=== PATIENT | female | born 1950 | race Two or more races ===

== ENCOUNTER 2016-06-20 14:15 | Emergency (ER) | payer SELFPAY ==
[~2016-06-20] VITALS: Ht 165.1 cm; Wt 79.4 kg
[2016-06-20 14:55] LABS: BASOPHILS # (AUTO) 0.1 /CMM (0.0-0.2); BASOPHILS % (AUTO) 0.5 % (0.0-2.0); DIFF TOTAL % 100 %; EOSINOPHILS # (AUTO) 0.1 /CMM (0.0-0.7); EOSINOPHILS % (AUTO) 0.7 % (0.0-6.0); HEMATOCRIT 43 % (33-45); HEMOGLOBIN 14.5 g/dL (11.5-14.8); LYMPHOCYTES % (AUTO) 17.6 % (20.0-44.0); MEAN CORPUSCULAR HEMOGLOBIN 28 PG (26.0-33.0); MEAN CORPUSCULAR HGB CONC 33 g/dl (31.0-36.0); MEAN CORPUSCULAR VOLUME 85 fL (82-100); MONOCYTES # (AUTO) 0.4 /CMM (0.1-1.30); MONOCYTES % (AUTO) 3.4 % (2.0-12.0); NEUTROPHILS # (AUTO) 8.9 /CMM (1.8-8.9); NEUTROPHILS % (AUTO) 77.8 % (43.0-81.0); PLATELET COUNT (AUTO) 329 /CMM (150-450); RED BLOOD CELL COUNT(AUTO) 5.12 MIL/uL (4.0-5.2); WHITE BLOOD COUNT (AUTO) 11.5 K/uL (4.3-11.0)
[2016-06-20 15:23] LABS: ALANINE AMINOTRANSFERASE 21 U/L (12-78); ALBUMIN 4.1 g/dL (3.4-5.0); ANION GAP 14 (5-14); ASPARTATE AMINOTRANSFERASE 24 U/L (15-37); BILIRUBIN,DIRECT 0.1 mg/dL (0.0-0.2); BILIRUBIN,TOTAL 0.6 mg/dL (0.2-1.0); CALCIUM, SERUM 9.2 mg/dL (8.5-10.1); CARBON DIOXIDE 28 mmol/L (21-32); CHLORIDE 102 mmol/L (98-107); CREATININE 0.9 mg/dL (0.6-1.3); GFR 62 mL/min (>60); GLUCOSE 127 mg/dL (74-106); INDIRECT BILIRUBIN 0.5 mg/dL (0.0-1.1); POTASSIUM 3.4 mmol/L (3.5-5.1); SODIUM SERUM 140 mmol/L (136-145); TOTAL PROTEIN, SERUM 8.6 g/dL (6.4-8.2); UREA NITROGEN, BLOOD 12 mg/dL (7-18)
[2016-06-20 15:26] LABS: ACETAMINOPHEN 0 ug/ml (10-30); SALICYLATE 1.8 mg/dL (2.8-20.0)
[2016-06-20 15:33] LABS: INR 1.02 (0.87-1.13); PROTHROMBIN TIME 10.7 SECS (9.5-12.7)
[2016-06-20 15:37] LABS: THYROID STIMULATING HORMONE 2.897 uIU/mL (0.358-3.74)
[2016-06-20 15:53] LABS: KETONES,URINE 15 (NEGATIVE); LEUKOCYTE ESTERASE ,URINE Trace (NEGATIVE)
[2016-06-20 15:57] LABS: ADD UA MICROSCOPIC YES
[2016-06-20] MEDS ORDERED: POTASSIUM CHLORIDE 20 MEQ TAB.PRT.SR PO ONE ×2 (16:00→16:07)
[2016-06-20 16:06] LABS: RBC,URINE 0-2 /HPF (0-2)
[2016-06-20 16:07] LABS: ADD URINE CULTURE YES; WBC,URINE 20-40 /HPF (0-3)
[2016-06-20 16:10] LABS: CANNABINOID, URINE NEGATIVE (NEGATIVE); PHENCYCLIDINE SCREEN,URINE NEGATIVE (NEGATIVE)
[2016-06-20] MEDS ORDERED: SULFAMETH/TRIMETH 800/160 MG 1 UDTAB TABLET PO ONE ×2 (17:58→18:00)
[2016-06-20 20:47] VITALS: BP 149/98
== END 2016-06-20 20:48 | disposition home or self-care (01) ==
LOC: ER 14:19
DX: F03.90 Unspecified dementia, unspecified severity, without behavioral disturbance, psychotic disturbance, mood disturbance, and anxiety (principal); G93.40 Encephalopathy, unspecified; E87.6 Hypokalemia; N39.0 Urinary tract infection, site not specified; R40.4 Transient alteration of awareness; R79.1 Abnormal coagulation profile
CPT/HCPCS: 36415; 70450; 80048; 80076; 80305; 80329; 81001; 82962; 84443; 85025; 85730; 87077; 87086; 87186; 99285; A4606; G0480 ×2; Z7610; 81000-TC; G6039-TC

== ENCOUNTER 2017-02-23 15:42 | Inpatient (IN) | payer MEDICARE, MEDICAID ==
[~2017-02-23] VITALS: Ht 154.9 cm; Wt 76.2 kg
--- NOTE | 2017-02-23 15:45 | NUR ---
MELISSA CARMONA FROM [facility]. PATIENT IS CURRENTLY CALM AND COOPERATIVE. BREATHING EVEN AND UNLABORED. NO SOB. VITALS STABLE. SAFETY AND COMFORT MEASURES IN PLACE. AWAITING MD ORDERS.
--- NOTE | 2017-02-23 15:55 | NUR ---
AUTOMOBILE ACCESSORIES INSTALLER AT [facility] FOR [facility]OD [facility].
[2017-02-23 16:02] LABS: BASOPHILS # (AUTO) 0.1 /CMM (0.0-0.2); BASOPHILS % (AUTO) 0.8 % (0.0-2.0); EOSINOPHILS # (AUTO) 0.5 /CMM (0.0-0.7); EOSINOPHILS % (AUTO) 6.1 % (0.0-6.0); HEMATOCRIT 43 % (33-45); HEMOGLOBIN 14.1 g/dL (11.5-14.8); LYMPHOCYTES # (AUTO) 2.7 /CMM (0.8-4.8); LYMPHOCYTES % (AUTO) 35.5 % (20.0-44.0); MEAN CORPUSCULAR HEMOGLOBIN 28 PG (26.0-33.0); MEAN CORPUSCULAR HGB CONC 33 g/dl (31.0-36.0); MEAN CORPUSCULAR VOLUME 84 fL (82-100); MONOCYTES # (AUTO) 0.4 /CMM (0.1-1.30); MONOCYTES % (AUTO) 5.1 % (2.0-12.0); NEUTROPHILS # (AUTO) 4.1 /CMM (1.8-8.9); NEUTROPHILS % (AUTO) 52.5 % (43.0-81.0); PLATELET COUNT (AUTO) 262 /CMM (150-450); RDW COEFFICIENT OF VARIATION 13.7 (11.5-15.0); RED BLOOD CELL COUNT(AUTO) 5.05 MIL/uL (4.0-5.2); WHITE BLOOD COUNT (AUTO) 7.8 K/uL (4.3-11.0)
[2017-02-23 16:19] LABS: ALCOHOL, BLOOD < 3 mg/dL (0-0); CALCIUM, SERUM 9.2 mg/dL (8.5-10.1); CARBON DIOXIDE 27 mmol/L (21-32); CHLORIDE 105 mmol/L (98-107); CREATININE 0.7 mg/dL (0.6-1.3); GLUCOSE 102 mg/dL (74-106); POTASSIUM 3.5 mmol/L (3.5-5.1); SODIUM SERUM 141 mmol/L (136-145); UREA NITROGEN, BLOOD 14 mg/dL (7-18)
[2017-02-23] MEDS ORDERED: CALC500T63 PO (16:26)
[2017-02-23] MEDS ORDERED: ACET-868 PO (16:26)
[2017-02-23] MEDS ORDERED: BISA10SU8 RC (16:26)
[2017-02-23] MEDS ORDERED: NA P133E RC (16:26)
[2017-02-23] MEDS ORDERED: ARIP400S IM (16:26)
[2017-02-23] MEDS ORDERED: AMLO10TA2 PO (16:26)
[2017-02-23] MEDS ORDERED: DIVA125C PO (16:26)
[2017-02-23] MEDS ORDERED: METF500T7 PO (16:26)
[2017-02-23] MEDS ORDERED: SENN8.6T6 PO (16:26)
[2017-02-23] MEDS ORDERED: LISI2.5T2 PO (16:26)
[2017-02-23] MEDS ORDERED: POLY17PO4 PO (16:26)
--- NOTE | 2017-02-23 16:45 | NUR ---
URINE OBTAINED AND SENT TO LAB.
[2017-02-23 16:59] LABS: APPEARANCE,URINE Clear (CLEAR); BILIRUBIN,URINE Negative (NEGATIVE); BLOOD, URINE Negative Ery/uL (NEGATIVE); COLOR,URINE Yellow (YELLOW); KETONES,URINE Negative (NEGATIVE); LEUKOCYTE ESTERASE ,URINE Moderate (NEGATIVE); NITRITE, URINE Negative (NEGATIVE); PROTEIN,URINE Negative (NEGATIVE); UGLUCOSE Negative (NEGATIVE); UROBILINOGEN,URINE 0.2 EU/dL (0.2)
[2017-02-23 17:14] LABS: BACTERIA,URINE Few /HPF (None Seen); RBC,URINE 0-2 /HPF (0-2); SQUAMOUS EPITHELIAL CELL,UR Few /HPF (None Seen)
--- NOTE | 2017-02-23 19:30 | NUR ---
REPORT RECEIVED FROM NINA PORTILLO FOR YARIEL.
[2017-02-23] MEDS ORDERED: NA PHOS,M-B/NA PHOS,DI-BA 1 EA ENEMA RC PRN (20:00)
[2017-02-23] MEDS ORDERED: ACETAMINOPHEN 325 MG TABLET PO PRN ×2 (20:00→21:00)
[2017-02-23] MEDS ORDERED: CALCIUM CARBONATE 500 MG TAB.CHEW PO PRN (20:00)
[2017-02-23] MEDS ORDERED: DEXTROSE 50%-WATER 50 ML DISP.SYRIN IV PRN (20:00)
[2017-02-23] MEDS ORDERED: BISACODYL SUPP (10 MG) 10 MG/SUPP.RECT SUPP.RECT RC PRN (20:00)
--- NOTE | 2017-02-23 20:07 | NUR ---
PT ADMIT TO BEV 219.
--- NOTE | 2017-02-23 20:12 | NUR ---
REPORT GIVEN TO LUISITO FOR YARIEL ON BEV FLOOR.
--- NOTE | 2017-02-23 20:26 | NUR ---
PT TRANSPORTED TO [place] [id number] VIA WHEELCHAIR WITH EMT. VSS
[2017-02-23 20:30] VITALS: BP 163/95
--- NOTE | 2017-02-23 20:30 | NUR ---
GPS GLOVE PARTS INSPECTOR NOTES ADMITTED THIS 66 YEAR OLD FEMALE ON 5150 HOLD FOR DANGER TO OTHERS AND GRAVE DISABILITY. PER HOLD PATIENT WAS AGGRESSIVE WITH STAFF AFTER THEY TRIED TO STOP HER FROM LEAVING THE FACILITY. PATIENT TRIED TO LEAVE FACILITY THROUGH THE WINDOW. UPON FACE TO FACE PATIENT WAS IRRITABLE AND UNCOOPERATIVE. REFUSED MEDICATION. PATIENT IS UZBEK SPEAKING. VITAL SIGNS CHECKED AND RECORDED. AFEBRILE. ASSESSMENT OF BODY SYSTEMS COMPLETED. SKIN CHECK DONE. SKIN IS CLEAR. PATIENTS BELONGINGS CHECKED FOR CONTRABAND ITEMS. NO CONTRABAND FOUND WITH PATIENT. PATIENT ADMITTED UNDER THE CARE OF DR. BOWLING FOR PSYCH AND DR. BERNARD FOR MEDICAL. BOTH NOTIFIED OF THIS ADMISSION. MED. RECON DONE. WILL NOTIFY NEXT OF KIN IN AM. PATIENT MADE COMFORTABLE IN BED. WILL MONITOR PATIENT FOR SAFETY AND BEHAVIORS.
[2017-02-23] MEDS ORDERED: MAGNESIUM HYDROXIDE 30 ML UDC PO PRN (21:00)
[2017-02-23] MEDS ORDERED: MAG HYDROX/AL HYDROX/SIMETH 30 ML UDC PO PRN (21:00)
[2017-02-23] MEDS ORDERED: TEMAZEPAM 7.5 MG CAPSULE PO PRN (21:00)
[2017-02-23] MEDS ORDERED: LORAZEPAM 0.5 MG TABLET PO PRN (21:00)
[2017-02-23] MEDS: BLOOD SUGAR DIAGNOSTIC 1 EACH STRIP IN SCH (22:59)
[2017-02-23] MEDS: LISINOPRIL (5MG) 5 MG TABLET PO SCH ×2 (23:21→23:59)
[2017-02-23] MEDS: SENNOSIDES 8.6 MG TABLET PO SCH ×2 (23:21→23:59)
[2017-02-23] MEDS ORDERED: INSULIN REGULAR, HUMAN 100 UNIT/ML 3 ML VIAL ONE (23:35)
[2017-02-23 23:54] VITALS: BP 148/88
[2017-02-23] MEDS: INSULIN REGULAR, HUMAN 100 UNIT/ML 3 ML VIAL SQ PRN (23:55)
--- NOTE | 2017-02-24 07:23 | NUR ---
GPS RN NOTES CALL PLACED TO JARRED (), NUMBER WAS NOT WORKING. CALL MADE TO DAUGHTER KARYNA NOTIFIED HER OF MOTHERS ADMISSION.
[2017-02-24 07:47] VITALS: BP 144/75
[2017-02-24] MEDS: BLOOD SUGAR DIAGNOSTIC 1 EACH STRIP IN SCH ×4 (07:50→21:21)
[2017-02-24] MEDS: AMLODIPINE BESYLATE 10 MG TABLET PO SCH (09:00)
[2017-02-24] MEDS: LISINOPRIL (5MG) 5 MG TABLET PO SCH (09:00)
[2017-02-24] MEDS: POLYETHYLENE GLYCOL 3350 17 GM POWD.PACK PO SCH (09:00)
[2017-02-24] MEDS: METFORMIN XR 500 MG TAB.SR.24H PO SCH (09:00)
--- NOTE | 2017-02-24 09:06 | NUR ---
GPS/RN pt refused am meds stated " medication makes me sick". communicated with help of hungarian speaking Chin FUNEZ. pt understands basic Telugu.
--- NOTE | 2017-02-24 11:39 | NUR ---
GPS/RN PT IS DNR/DNI PER ORIGINAL POLST IN THE CHART
[2017-02-24] MEDS: DIVALPROEX SODIUM 125 MG CAP.SPRINK PO SCH ×2 (12:15→21:00)
--- NOTE | 2017-02-24 12:18 | NUR ---
GPS/RN PT TOOK THE DEPAKOTE PO BUT REFUSED ACCUCHECK. OFFERED X3
[2017-02-24 12:28] LABS: BASOPHILS % (AUTO) 0.5 % (0.0-2.0); EOSINOPHILS # (AUTO) 0.5 /CMM (0.0-0.7); EOSINOPHILS % (AUTO) 6.3 % (0.0-6.0); HEMATOCRIT 41 % (33-45); HEMOGLOBIN 13.9 g/dL (11.5-14.8); LYMPHOCYTES # (AUTO) 2.9 /CMM (0.8-4.8); LYMPHOCYTES % (AUTO) 36.6 % (20.0-44.0); MEAN CORPUSCULAR HEMOGLOBIN 28 PG (26.0-33.0); MEAN CORPUSCULAR HGB CONC 34 g/dl (31.0-36.0); MEAN CORPUSCULAR VOLUME 83 fL (82-100); MONOCYTES # (AUTO) 0.4 /CMM (0.1-1.30); MONOCYTES % (AUTO) 5.4 % (2.0-12.0); NEUTROPHILS # (AUTO) 4.1 /CMM (1.8-8.9); NEUTROPHILS % (AUTO) 51.2 % (43.0-81.0); PLATELET COUNT (AUTO) 274 /CMM (150-450); RDW COEFFICIENT OF VARIATION 13.6 (11.5-15.0); RED BLOOD CELL COUNT(AUTO) 4.92 MIL/uL (4.0-5.2)
[2017-02-24 13:04] LABS: ALBUMIN 3.4 g/dL (3.4-5.0); BILIRUBIN,TOTAL 0.3 mg/dL (0.2-1.0); CALCIUM, SERUM 9.2 mg/dL (8.5-10.1); CHOLESTEROL 255 mg/dL (<200); CREATININE 0.8 mg/dL (0.6-1.3); HDL CHOLESTEROL 65 mg/dL (40-60); LDL 161 mg/dL (0-99); POTASSIUM 3.7 mmol/L (3.5-5.1); TOTAL PROTEIN, SERUM 7.6 g/dL (6.4-8.2); TRIGLYCERIDES 137 mg/dL (30-150)
[2017-02-24 16:00] VITALS: BP 152/71
--- NOTE | 2017-02-24 18:09 | NUR ---
GPS/RN PT REFUSED 1730 ACCUCHECK OFFERED X3
[2017-02-24 20:00] VITALS: BP 124/56
[2017-02-24] MEDS: SENNOSIDES 8.6 MG TABLET PO SCH (21:15)
[2017-02-24] MEDS: CIPROFLOXACIN HCL 500 MG TABLET PO SCH (21:15)
--- NOTE | 2017-02-24 21:42 | NUR ---
GPS RN NOTE: PATIENT REFUSED DEPAKOTE, OFFERED X 3 ATTEMPT, EXPLAINED THE RISK AND BENEFITS, PATIENT STILL REFUSED AND STATED I DON'T NEED IT. WILL CONTINUE TO MONITOR
--- NOTE | 2017-02-25 07:59 | NUR ---
[id number]: BLOOD SUGAR IS 93 MG/DL AND NO INSULIN REQUIRED AT THIS TIME
[2017-02-25] MEDS: BLOOD SUGAR DIAGNOSTIC 1 EACH STRIP IN SCH ×4 (08:09→22:03)
[2017-02-25] MEDS: CIPROFLOXACIN HCL 500 MG TABLET PO SCH ×2 (08:09→21:28)
[2017-02-25] MEDS: DIVALPROEX SODIUM 125 MG CAP.SPRINK PO SCH ×2 (08:10→21:28)
[2017-02-25] MEDS: POLYETHYLENE GLYCOL 3350 17 GM POWD.PACK PO SCH (08:10)
[2017-02-25] MEDS: METFORMIN XR 500 MG TAB.SR.24H PO SCH (08:10)
[2017-02-25] MEDS: AMLODIPINE BESYLATE 10 MG TABLET PO SCH (08:11)
[2017-02-25] MEDS: LISINOPRIL (5MG) 5 MG TABLET PO SCH (08:11)
[2017-02-25 08:18] VITALS: BP 153/71
--- NOTE | 2017-02-25 12:03 | NUR ---
[id number]: BLOOD SUGAR IS 96 MG/DL AND NO INSULIN REQUIRED AT THIS TIME
[2017-02-25 16:00] VITALS: BP 136/62
--- NOTE | 2017-02-25 16:50 | NUR ---
[id number]: BLOOD SUGAR IS 95 MG/DL AND NO INSULIN REQUIRED AT THIS TIME.
[2017-02-25 19:43] VITALS: BP 114/62
[2017-02-25] MEDS: SENNOSIDES 8.6 MG TABLET PO SCH (21:28)
[2017-02-25] MEDS: INSULIN REGULAR, HUMAN 100 UNIT/ML 3 ML VIAL SQ PRN (22:06)
--- NOTE | 2017-02-26 07:59 | NUR ---
[id number]: BLOOD SUGAR IS 83 MG/DL AND NO INSULIN COVERAGE REQUIRED AT THIS TIME
[2017-02-26] MEDS: BLOOD SUGAR DIAGNOSTIC 1 EACH STRIP IN SCH ×4 (08:02→21:53)
[2017-02-26 08:19] VITALS: BP 145/80
[2017-02-26] MEDS: CIPROFLOXACIN HCL 500 MG TABLET PO SCH ×2 (09:06→21:29)
[2017-02-26] MEDS: METFORMIN XR 500 MG TAB.SR.24H PO SCH (09:06)
[2017-02-26] MEDS: POLYETHYLENE GLYCOL 3350 17 GM POWD.PACK PO SCH (09:06)
[2017-02-26] MEDS: AMLODIPINE BESYLATE 10 MG TABLET PO SCH (09:07)
[2017-02-26] MEDS: LISINOPRIL (5MG) 5 MG TABLET PO SCH (09:09)
[2017-02-26] MEDS: DIVALPROEX SODIUM 125 MG CAP.SPRINK PO SCH ×2 (09:09→21:29)
--- NOTE | 2017-02-26 12:17 | NUR ---
[id number]: BLOOD SUGAR IS 69 MG/DL AND NO INSULIN COVERAGE REQUIRED AT THIS TIME. GAVE A CUP OF ORANGE JUICE WITH TWO PACKETS OF WHITE SUGAR. WILL CONTINUE TO MONITOR FOR SIGNS AND SYMPTOMS OF HYPOGLYCEMIC.
[2017-02-26] MEDS: DIVALPROEX SODIUM 250 MG TABLET.DR PO SCH (12:51)
--- NOTE | 2017-02-26 13:39 | NUR ---
Initial Discharge Plan: Patient resides at [facility] ([phone]) on [address] [place] [address] and wants to return to the facility upon discharge. DANNY called [facility] and spoke to Tamra Thomson from the Business Office. SW inquired about patient's 7 day bed hold. Per, Tamra pt can return to facility upon discharge. DANNY will follow up. SW will help form a safe and proper discharge.
[2017-02-26] MEDS ORDERED: hydrALAZINE HCL 25 MG TABLET PO PRN (15:30)
[2017-02-26 15:53] VITALS: BP 146/84
--- NOTE | 2017-02-26 16:00 | NUR ---
[id number]: BLOOD SUGAR IS 90 MG/DL AND NO INSULIN REQUIRED AT THIS TIME
--- NOTE | 2017-02-26 19:30 | NUR ---
GPS RN NOTE, RECEIVED PATIENT AWAKE AND IN BED . PATIENT HAS NO COMPLAINTS OR S/S OF PAIN. PATIENT BREATHING IS UNLABORED WITH EQUAL RISE AND FALL OF THE CHEST. PATIENT IS ALERT AND ORIENTED X2 ON ROOM AIR WITH A SPO2 99 %. PATIENT IS MEXICAN SPEAKING ONLY. PATIENT IS MED COMPLIANT, PARANOID, SUSPICIOUS, ANXIOUS, DISORGANIZED, AND NEEDS REORIENTATION. PATIENT DENIES SUICIDE IDEATIONS AND HOMICIDAL IDEATIONS AT THIS TIME. PATIENT ASSISTED WITH TURNING AND REPOSITIONING Q2HR AND PRN FOR COMFORT AND CIRCULATION. PATIENT HAS NO NEEDS AT THIS TIME. PATIENT EDUCATED ON THE USE OF THE CALL CELAYA. PATIENT BED SIDE RAILS UP X 2 FOR SAFETY. PATIENT BED IS LOCKED AND LOW WILL CONTINUE TO MONITOR AND MAINTAIN SAFETY Q15 MIN WITH THE HELP OF STAFF.
[2017-02-26 20:05] VITALS: BP 136/75
[2017-02-26] MEDS: SENNOSIDES 8.6 MG TABLET PO SCH (21:29)
--- NOTE | 2017-02-26 21:53 | NUR ---
GPS RN NOTE, PERFORMED ACCU CHECK ON PATIENT WITH A BLOOD SUGAR RESULT OF 114. GAVE 0 UNITS OF REGULAR INSULIN PER SLIDING SCALE. WILL CONTINUE TO MONITOR THIS PATIENT.
[2017-02-27 07:52] LABS: ALBUMIN 3.5 g/dL (3.4-5.0); BILIRUBIN,TOTAL 0.4 mg/dL (0.2-1.0); CALCIUM, SERUM 9.6 mg/dL (8.5-10.1); CREATININE 0.8 mg/dL (0.6-1.3); POTASSIUM 4.4 mmol/L (3.5-5.1); TOTAL PROTEIN, SERUM 8.2 g/dL (6.4-8.2)
--- NOTE | 2017-02-27 07:59 | NUR ---
[id number]: BLOOD SUGAR IS 112 MG/DL AND NO INSULIN REQUIRED AT THIS TIME Addendum: 02/27/17 at 1355 by BENNETT HOUSTON RN DUPLICATE ORDER
--- NOTE | 2017-02-27 07:59 | NUR ---
[id number]: BLOOD SUGAR IS 112 MG/DL AND NO INSULIN REQUIRED AT THIS TIME
[2017-02-27 08:00] VITALS: BP 148/89
[2017-02-27] MEDS: METFORMIN XR 500 MG TAB.SR.24H PO SCH (08:26)
[2017-02-27] MEDS: BLOOD SUGAR DIAGNOSTIC 1 EACH STRIP IN SCH ×4 (08:26→22:10)
[2017-02-27] MEDS: DIVALPROEX SODIUM 125 MG CAP.SPRINK PO SCH ×2 (08:26→21:23)
[2017-02-27] MEDS: POLYETHYLENE GLYCOL 3350 17 GM POWD.PACK PO SCH (08:26)
[2017-02-27] MEDS: CIPROFLOXACIN HCL 500 MG TABLET PO SCH ×2 (08:27→21:23)
[2017-02-27] MEDS: LISINOPRIL (5MG) 5 MG TABLET PO SCH (08:27)
[2017-02-27] MEDS: AMLODIPINE BESYLATE 10 MG TABLET PO SCH (08:27)
[2017-02-27 09:07] LABS: BASOPHILS % (AUTO) 0.4 % (0.0-2.0); EOSINOPHILS # (AUTO) 0.4 /CMM (0.0-0.7); EOSINOPHILS % (AUTO) 6.2 % (0.0-6.0); HEMATOCRIT 44 % (33-45); HEMOGLOBIN 14.6 g/dL (11.5-14.8); LYMPHOCYTES # (AUTO) 2.8 /CMM (0.8-4.8); LYMPHOCYTES % (AUTO) 39.1 % (20.0-44.0); MEAN CORPUSCULAR HEMOGLOBIN 28 PG (26.0-33.0); MEAN CORPUSCULAR HGB CONC 33 g/dl (31.0-36.0); MEAN CORPUSCULAR VOLUME 84 fL (82-100); MONOCYTES # (AUTO) 0.4 /CMM (0.1-1.30); MONOCYTES % (AUTO) 5.3 % (2.0-12.0); NEUTROPHILS # (AUTO) 3.6 /CMM (1.8-8.9); PLATELET COUNT (AUTO) 288 /CMM (150-450); RDW COEFFICIENT OF VARIATION 13.8 (11.5-15.0); RED BLOOD CELL COUNT(AUTO) 5.24 MIL/uL (4.0-5.2); WHITE BLOOD COUNT (AUTO) 7.3 K/uL (4.3-11.0)
--- NOTE | 2017-02-27 11:59 | NUR ---
[id number]: BLOOD SUGAR IS 83 MG/DL AND NO INSULIN REQUIRED AT THIS TIME
[2017-02-27] MEDS: DIVALPROEX SODIUM 250 MG TABLET.DR PO SCH (13:31)
[2017-02-27 15:41] VITALS: BP 124/58
--- NOTE | 2017-02-27 16:29 | NUR ---
[id number]: BLOOD SUGAR IS 99 MG/DL AND NO INSULIN COVERAGE REQUIRED AT THIS TIME
[2017-02-27 20:43] VITALS: BP 125/63
[2017-02-27] MEDS: SENNOSIDES 8.6 MG TABLET PO SCH (21:22)
[2017-02-27] MEDS: INSULIN REGULAR, HUMAN 100 UNIT/ML 3 ML VIAL SQ PRN (22:08)
[2017-02-28 08:00] VITALS: BP 126/55
--- NOTE | 2017-02-28 08:00 | NUR ---
PATIENT BLOOD SUGAR WAS 82MG/DL,NO COVERAGE GIVEN.
[2017-02-28] MEDS: LISINOPRIL (5MG) 5 MG TABLET PO SCH (09:00)
[2017-02-28] MEDS: AMLODIPINE BESYLATE 10 MG TABLET PO SCH (09:00)
[2017-02-28] MEDS: BLOOD SUGAR DIAGNOSTIC 1 EACH STRIP IN SCH ×3 (09:22→17:28)
[2017-02-28] MEDS: DIVALPROEX SODIUM 125 MG CAP.SPRINK PO SCH ×2 (09:22→12:42)
[2017-02-28] MEDS: CIPROFLOXACIN HCL 500 MG TABLET PO SCH (09:22)
[2017-02-28] MEDS: METFORMIN XR 500 MG TAB.SR.24H PO SCH (09:23)
[2017-02-28] MEDS: POLYETHYLENE GLYCOL 3350 17 GM POWD.PACK PO SCH (09:23)
--- NOTE | 2017-02-28 12:00 | NUR ---
RN-NOTES PATIENT BLOOD SUGAR WAS 95 MG/DL,NO COVERAGE GIVEN.
--- NOTE | 2017-02-28 12:16 | NUR ---
Discharge Note: Pt will be discharged to [facility], [address] [place] [address]; via ambulance transportation around 4pm. Pts daughter, Harini Vargas, has been notified and is agreeable with discharge plans. Pt will be seen by her Psychiatrist, Dr. Maki, [address] [place] [id number] on 03/07/2017 at 12:00 pm. Pt will be see by her grove superintendent, Dr. Schwartz [id number] [facility]. [facility] [address], [place] [address] on 03/08/2017 at 10 am. DANNY faxed, [facility] (fax # [phone]) pts latest progress notes and med. list. DANNY contacted facility and spoke to Roxane Shirt Closer, letting her know of pts discharge plans. DANNY was placed on hold for 10 minutes, at which time Roxane responded by saying she would relay message to her metal fabricating supervisor (metal fabricating supervisor was not answering her phone, per electric range assembler report). DANNY will follow up and confirm with facility, once again in order to ensure pts proper discharge.
[2017-02-28 16:35] VITALS: BP 138/67
--- NOTE | 2017-02-28 17:39 | NUR ---
RN-NOTES PATIENT BLOOD SUGAR WAS 82 MG/DL,NO COVERAGE GIVEN.
--- NOTE | 2017-02-28 18:06 | NUR ---
RN-NOTES PATIENT DISCHARGE TO [facility] TODAY. DR. RODRIGUEZ COVERING FOR DR. BOWLING TODAY AND TWISTING PRESS OPERATOR JEANETTE MADE AWARE AND AGREES OF PATIENT DISCHARGE. REPORT WAS GIVEN TO RAMONA ( RECONNAISSANCE CREWMEMBER). PATIENT DID NOT VERBALIZE SI/HI DENIES,VISUAL/AUDITORY HALLUCINATIONS AT THE TIME OF DISCHARGE. DAUGHTER KARYNA AWARE OF THE DISCHARGE.PATIENT LEFT THE UNIT IN STABLE CONDITION WITH ALL HER BELONGINGS. OFFSET PRINTING PRESSMEN BY AMBULANCE VIA GURNEY WITH TWO STAFF ASSIST.
[2017-02-28] MEDS ORDERED: DIVALPROEX SODIUM 250 MG TABLET.DR PO SCH (22:00)
== END 2017-02-28 18:05 | DRG 885 ==
LOC: ER 15:52 → GPS 19:30
PROVIDERS: ADMIT Psychiatry & Neurology Psychiatry; ATTEND Internal Medicine
DX: F25.0 Schizoaffective disorder, bipolar type (principal); F01.50 Vascular dementia, unspecified severity, without behavioral disturbance, psychotic disturbance, mood disturbance, and anxiety; E11.9 Type 2 diabetes mellitus without complications; F23 Brief psychotic disorder; N39.0 Urinary tract infection, site not specified; E78.5 Hyperlipidemia, unspecified; F41.9 Anxiety disorder, unspecified; I10 Essential (primary) hypertension; Z86.73 Personal history of transient ischemic attack (TIA), and cerebral infarction without residual deficits; Z79.899 Other long term (current) drug therapy; Z66 Do not resuscitate; Z73.6 Limitation of activities due to disability; Z79.84 Long term (current) use of oral hypoglycemic drugs
CPT/HCPCS: 36415; 80048-TC; 80053-TC; 80061-TC; 80164-TC; 80305; 81000-TC; 82962-TC; 85025-TC; 87081-TC; 87086-TC; A4606; G0480; J1815; Z7610